=== PATIENT | female | born 1945 | race African-American/Black ===

== ENCOUNTER 2016-11-29 20:41 | Emergency (ER) | payer SELFPAY ==
[2016-11-29 20:53] VITALS: BP 137/64; PULSE 64; TEMP 98.6; BMI 35.1
--- NOTE | 2016-11-29 21:21 | PDOC ---
History of Present Illness - General Chief Complaint: Shortness of Breath Stated Complaint: DIFFICULTY BREATHING Time Seen by Provider: 11/29/16 20:53 - History of Present Illness Initial Comments: 11/29/16 21:21 71F [facility] of asthma, GERD and HTN presents with SOB, LUQ pain and heartburn for 3 days. No recent travel, no nausea or vomiting, no palpitations. No diaphoresis. Patient is afebrile and non-tachycardic. 11/29/16 21:58 Past History - Past Medical History Allergies/Adverse Reactions: Allergies Allergy/AdvReac Type Severity Reaction Status Date / Time Fish Containing Products AdvReac Severe Swelling Verified 11/29/16 20:52 RED MEAT Allergy Itching Uncoded 11/29/16 20:52 Home Medications: Ambulatory Orders Fexofenadine HCl 180 mg PO DAILY #30 tablet 11/03/12 Fluticasone Prop 0.05% Nasal [Flonase -] 1 spray NS BID #1 spray.pump 11/03/12 Montelukast Na [Singulair -] 10 mg PO HS #30 tablet 11/03/12 Ibuprofen 400 mg PO QID #30 tablet 01/19/13 Asthma: Yes HTN: Yes - Psycho/Social/Smoking Cessation Hx Anxiety: No Suicidal Ideation: No Smoking Status: No Smoking History: Never smoked Number of Cigarettes Smoked Daily: 0 Review of Systems - Review of Systems Constitutional: Yes: Symptoms Reported. No: Chills, Diaphoresis, Night Sweats HEENTM: No: Symptoms Reported Respiratory: Yes: Cough, Shortness of Breath. No: Wheezing, Productive cough Cardiac (ROS): Yes: Chest Pain. No: Palpitations, Syncope ABD/GI: Yes: Abdominal Distended : No: Burning, Dysuria *Physical Exam - Vital Signs Last Vital Signs Temp Pulse Resp BP Pulse Ox 98.6 F 64 18 137/64 98 11/29/16 20:49 11/29/16 20:49 11/29/16 20:49 11/29/16 20:49 11/29/16 20:49 - Physical Exam General Appearance: Yes: Nourished, Appropriately Dressed HEENT: positive: EOMI, MYNOR Neck: positive: Trachea midline, Normal Thyroid Respiratory/Chest: positive: Normal Breath Sounds. negative: Respiratory Distress, Rhonchi, Stridor, Wheezing Cardiovascular: positive: Regular Rhythm, Regular Rate, S1, S2. negative: Bradycardia, Tachycardia Vascular Pulses: Carotid (R): 2+, Carotid (L): 2+, Dorsalis-Pedis (R): 2+, Doralis-Pedis (L): 2+ Gastrointestinal/Abdominal: positive: Soft (ULQ tenderness. Distended lower abdomen), Protuberent, Tenderness Extremity: positive: Normal Capillary Refill, Normal Range of Motion, Pedal Edema, Swelling. negative: Coldness, Calf Tenderness, Inflammation ED Treatment Course - LABORATORY CBC & Chemistry Diagram: 11/29/16 21:11 11/29/16 21:11 Medical Decision Making - Medical Decision Making 11/30/16 02:00 71F [facility] of asthma, GERD and HTN presents with SOB, LUQ pain and heartburn for 3 days. non tachy, sat ok R/O ND/: troponins +EKG negative, CXR neg. GI etiology more likely. Given GI cocktail. Repeat trops 6h later. *DC/Admit/Observation/Transfer Diagnosis at time of Disposition: Epigastric pain - Discharge Dispostion Condition at time of disposition: Stable - Referrals Referrals: STAFF,NOT ON [Primary Care Provider] -
[2016-11-29 21:25] LABS: BASOPHIL 0.5 % (0-2.0); EOSINOPHIL 2.4 % (0-4.5); MCH 29.3 pg (25.7-33.7); MCHC 32.5 g/dl (32.0-36.0); MEAN CELL VOLUME 90.3 fl (80-96); MEAN PLT VOLUME 9.2 fl (7.5-11.1); PLATELET COUNT 188 K/MM3 (134-434); RDW 16.4 % (11.6-15.6); WHITE BLOOD COUNT 6.4 K/mm3 (4.0-10.0)
[2016-11-29 21:35] LABS: INR 1.22 (0.82-1.09); PROTHROMBIN TIME (PATIENT) 13.5 SEC (9.98-11.88)
[2016-11-29 21:37] LABS: ACTIVATED PTT 30.3 SECONDS (26.9-34.4)
[2016-11-29 21:54] LABS: ALBUMIN 3.3 g/dl (3.4-5.0); ANION GAP 7 (8-16); BILIRUBIN,TOTAL 0.2 mg/dL (0.2-1.0); CALCIUM 8.4 mg/dL (8.5-10.1); CO2 28 mmol/L (21-32); CREATININE 0.7 mg/dL (0.55-1.02); GLUCOSE,RANDOM 118 mg/dL (74-106); SGOT/AST 13 U/L (15-37); SGPT/ALT 13 U/L (12-78); TOT PROT 7.3 g/dl (6.4-8.2)
[2016-11-29 21:57] LABS: ALK PHOS 93 U/L (45-117); TROPONIN I < 0.02 ng/ml (0.00-0.05)
[2016-11-29] MEDS ORDERED: FAMOTIDINE 20 MG/50 ML IVPB 50 ML IVPB ONE ×2 (22:49→23:05)
[2016-11-29] MEDS ORDERED: MAG HYDROX/AL HYDROX/SIMETH 30 ML UNIT-DOSE CUP PO ONE (22:49)
--- NOTE | 2016-11-29 22:50 | PDOC ---
*Physical Exam - Vital Signs Last Vital Signs Temp Pulse Resp BP Pulse Ox 98.6 F 64 18 137/64 98 11/29/16 20:49 11/29/16 20:49 11/29/16 20:49 11/29/16 20:49 11/29/16 20:49 Heart Score/ECG Review #1 ECG reviewed & interpreted by me at: 23:44 General ECG Interpretation: Sinus Rhythm, Normal Rate, Normal Intervals, No acute ischemic changes ED Treatment Course - LABORATORY CBC & Chemistry Diagram: 11/29/16 21:11 11/29/16 21:11 - ADDITIONAL ORDERS Additional order review: Laboratory Results 11/29/16 11/29/16 21:11 21:11 INR 1.22 H PTT (Actin FS) 30.3 Sodium 141 Potassium 4.0 Chloride 106 Carbon Dioxide 28 Anion Gap 7 L BUN 9 D Creatinine 0.7 D Creat Clearance w eGFR > 60 Random Glucose 118 H Calcium 8.4 L Total Bilirubin 0.2 D AST 13 L ALT 13 Alkaline Phosphatase 93 Creatine Kinase 54 Troponin I < 0.02 B-Natriuretic Peptide 120.89 Total Protein 7.3 Albumin 3.3 L 11/29/16 21:11 RBC 3.96 MCV 90.3 MCHC 32.5 RDW 16.4 H MPV 9.2 Neutrophils % 61.0 Lymphocytes % 28.2 Monocytes % 7.9 Eosinophils % 2.4 Basophils % 0.5 Medical Decision Making - Medical Decision Making This is a 71 yo F with a history HTN who presents to the ER with a complaint of chest pain located on the left side of the chest (+) shortness of breath No prior [place] No prior cardiac work up No recent travel No cough 11/29/16 22:47 Laboratory Tests 11/29/16 11/29/16 11/29/16 21:11 21:11 21:11 WBC 6.4 Hgb 11.6 Hct 35.8 Plt Count 188 INR 1.22 H BUN 9 D Creatinine 0.7 D Random Glucose 118 H Creatine Kinase 54 Troponin I < 0.02 B-Natriuretic Peptide 120.89 CXR: prominent aortic nob, no infiltrates 11/30/16 03:02 Laboratory Tests 11/30/16 01:45 Creatine Kinase 47 Troponin I < 0.02 Plan initially was to place on observation Dr Gonzalez has seen this patient in the ER The patient has decided that she does not want to stay in the ER will discharge to home 2nd troponin is negative Follow up with PMD Return to the ER for any other concerns or complaints *DC/Admit/Observation/Transfer Diagnosis at time of Disposition: Epigastric pain - Discharge Dispostion Disposition: HOME Condition at time of disposition: Stable Admit: No - Prescriptions Prescriptions: Omeprazole 20 mg PO DAILY #30 capsule.dr - Referrals Referrals: STAFF,NOT ON [Primary Care Provider] - - Patient Instructions Printed Discharge Instructions: DI for Epigastric Pain Additional Instructions: Thank you for coming to the ER today Please take your medications as prescribed Please return to the ER for any other concerns or complaints
[2016-11-29] MEDS ORDERED: MAG HYDROX/AL HYDROX/SIMETH 30 ML UNIT-DOSE CUP ONE (23:05)
[2016-11-29 23:37] LABS: URINE APPEARANCE CLEAR; URINE BILIRUBIN NEGATIVE (NEGATIVE); URINE BLOOD 2+ (NEGATIVE); URINE COLOR YELLOW; URINE GLUCOSE (UA) NEGATIVE (NEGATIVE); URINE KETONE NEGATIVE (NEGATIVE); URINE LEUK ESTERASE NEGATIVE (NEGATIVE); URINE NITRITE NEGATIVE (NEGATIVE); URINE PROTEIN NEGATIVE (NEGATIVE); URINE UROBILINOGEN NEGATIVE mg/dL (0.2-1.0)
[2016-11-29 23:38] LABS: URINE MUCUS FEW; URINE RBC 16 /hpf (0-3); URINE WBC 2 /hpf (3-5)
--- NOTE | 2016-11-30 00:33 | HP ---
Admitting History and Physical - Smoking History Smoking history: Never smoked Aproximately how many cigarettes per day: 0 Home Medications - Allergies Allergies/Adverse Reactions: Allergies Allergy/AdvReac Type Severity Reaction Status Date / Time Fish Containing Products AdvReac Severe Swelling Verified 11/29/16 20:52 RED MEAT Allergy Itching Uncoded 11/29/16 20:52 - Home Medications Home Medications: Ambulatory Orders Fexofenadine HCl 180 mg PO DAILY #30 tablet 11/03/12 Fluticasone Prop 0.05% Nasal [Flonase -] 1 spray NS BID #1 spray.pump 11/03/12 Montelukast Na [Singulair -] 10 mg PO HS #30 tablet 11/03/12 No Home Medications 0 dose .ROUTE UTDICT 11/03/12 Ibuprofen 400 mg PO QID #30 tablet 01/19/13 Physical Examination Vital Signs: Vital Signs Temperature 98.6 F 11/29/16 20:49 Pulse Rate 64 11/29/16 20:49 Respiratory Rate 18 11/29/16 20:49 Blood Pressure 137/64 11/29/16 20:49 O2 Sat by Pulse Oximetry (%) 98 11/29/16 20:49 Labs: CBC, BMP 11/29/16 21:11 11/29/16 21:11
[2016-11-30 02:31] LABS: TROPONIN I < 0.02 ng/ml (0.00-0.05)
--- NOTE | 2016-11-30 13:58 | EKG ---
Test Reason : Blood Pressure : / mmHG Vent. Rate : 061 BPM Atrial Rate : 061 BPM P-R Int : 168 ms QRS Dur : 102 ms QT Int : 436 ms P-R-T Axes : 048 -20 025 degrees QTc Int : 438 ms NORMAL SINUS RHYTHM NORMAL ECG NO PREVIOUS ECGS AVAILABLE Confirmed by YOLANDA JONES, VAN ([id number]) on 11/30/2016 1:57:44 PM Referred By: Confirmed By:VAN GUERRERO MD
== END 2016-11-30 03:29 | disposition home or self-care (01) ==
LOC: JER 20:41 → JERBED 11-30 00:11 → UNDOADMOB 11-30 00:11 → JER 11-30 03:29
PROC: 3E033GC Introduction of Other Therapeutic Substance into Peripheral Vein, Percutaneous Approach (ICD-10-PCS; principal; 2016-11-29)
DX: R10.13 Epigastric pain (principal); I10 Essential (primary) hypertension; J45.909 Unspecified asthma, uncomplicated; K21.9 Gastro-esophageal reflux disease without esophagitis
CPT/HCPCS: 36415; 71020-TC; 80053; 81003; 81015; 82550; 83880; 84484; 85025; 85610; 85730; 93005; 93010; 99282-25